=== PATIENT | male | born 1975 | race Hispanic/Latino ===

== ENCOUNTER 2017-02-01 12:52 | Emergency (ER) | payer SELFPAY ==
[2017-02-01] MEDS ORDERED: Budesonide 0.5 MG/2 ML NEB ONE (13:16)
--- NOTE | 2017-02-01 14:11 | RAD ---
RADIOGRAPH CHEST 2 VIEWS: HISTORY: 41-year-old male with cough. FINDINGS: There is no air space density, pulmonary edema, pleural effusion, pneumothorax, or cardiomegaly. Inte rstitial markings are prominent at the lung bases. IMPRESSION: No acute cardiopulmonary findings. abdullahi cabral POS: [facility]
[2017-02-01] MEDS ORDERED: Sodium Chloride For Inhalation 0.9% 3 ML NEB ONE (14:49)
[2017-02-01] MEDS ORDERED: Albuterol Sulfate 2.5 mg/0.5 ml Neb ONE (14:49)
== END 2017-02-01 15:00 | disposition home or self-care (01) ==
LOC: SCSER 12:52
DX: J20.9 Acute bronchitis, unspecified (principal); J45.909 Unspecified asthma, uncomplicated
CPT/HCPCS: 71020; 94640; J7611; J7620; J7626

== ENCOUNTER 2017-03-25 21:59 | Emergency (ER) | payer SELFPAY | END 2017-03-25 22:25 | disposition home or self-care (01) | LOC: SCSER 21:59 | DX: J40 Bronchitis, not specified as acute or chronic (principal) | CPT/HCPCS: 99283 ==

== ENCOUNTER 2017-11-11 08:38 | Emergency (ER) | payer SELFPAY ==
--- NOTE | 2017-11-11 09:27 | RAD ---
PA AND LATERAL VIEWS OF CHEST: Date: 11/11/17 HISTORY: Cough and sore throat. FINDINGS: Comparison made with exam of 02/01/17. The heart size is normal. The lungs are expanded without focal areas of consolidation, pneumothoraces , or pleural effusions. IMPRESSION: No radiographic evidence of acute cardiopulmonary process. POS: [facility]
== END 2017-11-11 09:35 | disposition home or self-care (01) ==
LOC: SCSER 08:38
DX: J02.0 Streptococcal pharyngitis (principal); J45.909 Unspecified asthma, uncomplicated; Z79.899 Other long term (current) drug therapy
CPT/HCPCS: 71046; 87430; 94640; J7620

== ENCOUNTER 2018-02-01 12:56 | Inpatient (IN) | payer SELFPAY ==
[2018-02-01] MEDS ORDERED: methylPREDNISolone Sod Succ/PF 125 MG/2 ML VIAL ONE (13:11)
[2018-02-01] MEDS ORDERED: Magnesium Sulfate 2 GM/NS 0.9% 50 ML BAG ONE (13:11)
[2018-02-01] MEDS ORDERED: Water For Inject, Bacteriostat 30 ML ONE (13:12)
[2018-02-01 13:43] LABS: Band 2 % (5-11); Hemoglobin 14.7 g/dL (14.0-18.0); Lymphocytes 3 % (21-51); MDiff Complete? YES; Mean Corpuscular HGB CONC 32.6 g/dL (32.0-36.0); Mean Platelet Volume 8.1 fL (7.4-10.4); Monocytes 3 % (0-10); Neutrophil 89 % (42-75); PLT Morphology Comment Appears Adequate; Platelet Count 236 thou/uL (130-400); Reactive Lymphocytes 2 % (0-10); Red Blood Cell (RBC) Count 5.06 mill/uL (4.70-6.10); Toxic Granulation SLIGHT; Vacuoles SLIGHT; White Blood Cell (WBC) Count 17.6 thou/uL (4.8-10.8)
[2018-02-01 13:50] LABS: ALT (SGPT) 16 U/L (8-55); AST (SGOT) 19 U/L (5-34); Albumin 4.4 g/dL (3.5-5.0); Alkaline Phosphatase 85 U/L (40-150); Anion Gap 15 mmol/L (10-20); BUN (Urea Nitrogen) 15 mg/dL (8.9-20.6); Bilirubin, Total 0.8 mg/dL (0.2-1.2); Calc. Creatinine Clearance 0 mL/min (70-130); Calcium 9.1 mg/dL (7.8-10.44); Carbon Dioxide 19 mmol/L (22-29); Chloride 112 mmol/L (98-107); Estimated GFR-MDRD 80; Globulin 3.1 g/dL (2.4-3.5); Glucose 120 mg/dL (70-105); Potassium 3.7 mmol/L (3.5-5.1); Protein, Total 7.5 g/dL (6.0-8.3); Sodium 142 mmol/L (136-145)
[2018-02-01] MEDS ORDERED: Sodium Chloride 0.9% 100 ML ONE (14:26)
[2018-02-01] MEDS ORDERED: cefTRIAXone\\ROCEPHIN 1 GM VIAL ONE (14:26)
--- NOTE | 2018-02-01 14:39 | RAD ---
RADIOGRAPH CHEST 1 VIEW: HISTORY: A 42-year-old male with dyspnea and productive cough. FINDINGS: The visualized lung romo are clear. The cardiomediastinal silhouette and hilar shadows are normal. The lateral costophrenic angles are sharp. The osseous structures appear normal. There is no pneu mothorax. IMPRESSION: Negative. abdullahi [] POS: [facility]
[2018-02-01 15:48] VITALS: BMI 24.5
[2018-02-01] MEDS ORDERED: Albuterol Sulfate 2.5 mg/3 ml Neb NEB PRN (15:59)
[2018-02-01] MEDS ORDERED: Magnesium 2 GM/50 ML 2 GM in Premix Bag 1 BAG IVPB SCH (16:15)
[2018-02-01] MEDS: Dextrose 5 %-0.45 % NaCl 1,000 ML IV SCH (17:49)
[2018-02-01] MEDS: Mometasone/Formoterol 120 PUFF INHALER INH SCH (18:23)
[2018-02-01] MEDS: Lorazepam 0.5 MG TAB PO PRN (19:35)
[2018-02-01] MEDS: Guaifenesin DM 100-10/5 ML UDCUP PO PRN (19:58)
[2018-02-01] MEDS: Montelukast Sodium 10 mg Tablet PO SCH (19:59)
--- NOTE | 2018-02-01 21:13 | CON ---
DATE OF CONSULTATION: HISTORY OF PRESENT ILLNESS: Robinson Mckeon is a 42-year-old gentleman with longstanding history of asthma, presented with tightness, coughing, and wheezing; unresponsive to usual home medication; he states he got an inhaler. He was placed on noninvasive ventilation. He apparently has a ProAir and albuterol inhaler at home. Denies any alcohol, tobacco, or substance abuse. He has no primary care physician. PAST MEDICAL HISTORY: Pertinent only for chronic asthma. No diabetes or hypertension. PAST SURGICAL HISTORY: None. HOME MEDICATIONS: ProAir. ALLERGIES: NONE. SOCIAL HISTORY: Does construction work. PHYSICAL EXAMINATION: VITAL SIGNS: On BiPAP, his saturations are 96%, respiratory rate _30, temperature 99, blood pressure 150/92, and pulse 115. CHEST: Diffuse wheezing. CARDIAC: Sinus tach. ABDOMEN: Soft without any masses. LABORATORY DATA: White count 17,000, Lytes are normal. DIAGNOSTIC DATA: X-ray was normal. IMPRESSION: Chronic obstructive pulmonary disease exacerbation; bronchitis, asthma exacerbation. PLAN: Magnesium, steroids, and neb treatment have been initiated. Baseline PFT prior to discharge. Consultation note 70 minutes, 50% in direct patient care. Job ID: [id number] MTDD
[2018-02-01] MEDS ORDERED: Lorazepam 2 MG/ML VIAL SLOW IVP SCH (21:30)
--- NOTE | 2018-02-02 01:05 | HP ---
PRIMARY CARE PROVIDER: [facility]. CHIEF COMPLAINT: Cough and shortness of breath. HISTORY OF PRESENT ILLNESS: This is a 42-year-old male who presented to [facility], complaining of increased shortness of breath over the last 2 days. The patient admitted to subjective fever, cold symptoms with progressive shortness of breath. The patient states he has a history of asthma, using a home albuterol inhaler which was not helping his symptoms. The patient also states he took prednisone which had been previously prescribed to him in the past without relief of symptoms. The patient denied any sick contacts, exposure history, travel, or family members with similar symptoms. In the emergency room, the patient underwent general evaluation including chest imaging showing no acute infiltrate. The patient was noted tachycardic with tachypnea and initially placed on BiPAP noninvasive mechanical ventilation in the emergency room. The patient also received azithromycin, Rocephin, DuoNebs, intravenous normal saline, Solu-Medrol, and magnesium. The patient was transferred to the intermediate care unit for further evaluation. PAST MEDICAL HISTORY: Asthma, moderate. PAST SURGICAL HISTORY: Reviewed and negative. CURRENT MEDICATIONS: Albuterol sulfate 1 puff inhaled q.4-6 hours p.r.n. ALLERGIES: NO KNOWN DRUG ALLERGIES. FAMILY HISTORY: No inheritable diseases per patient report. SOCIAL HISTORY: The patient resides in [place], [place]. Occasional alcohol use. No tobacco or illicit drug use. REVIEW OF SYSTEMS: CONSTITUTIONAL: Negative for weight loss or gain, ability to conduct usual activities. SKIN: Negative for rash, itching. EYES: Negative for double vision, pain. ENT/MOUTH: Negative for nose bleeding, neck stiffness, pain, tenderness. CARDIOVASCULAR: Negative for palpitations, dyspnea on exertion, orthopnea. RESPIRATORY: Negative for shortness of breath, wheezing, cough, hemoptysis, fever or night sweats. GASTROINTESTINAL: Negative for poor appetite, abdominal pain, heartburn, nausea, vomiting, constipation, or diarrhea. GENITOURINARY: Negative for urgency, frequency, dysuria, nocturia. MUSCULOSKELETAL: Negative for pain, swelling. NEUROLOGIC/PSYCHIATRIC: Negative for anxiety, depression. ALLERGY/IMMUNOLOGIC: Negative for skin rash, bleeding tendency. Otherwise negative except as stated per HPI. PHYSICAL EXAMINATION: VITAL SIGNS: On admission; blood pressure 133/70, pulse 114, respiratory rate 24, temperature 98.3 degrees Fahrenheit, O2 saturation 88% on room air. GENERAL APPEARANCE: This is a 42-year-old male, alert and oriented x3, pleasant, responsive, in no acute distress. HEENT: Pupils are equal, round, and reactive to light and accommodation. Extraocular muscles are intact. No scleral icterus. No conjunctival injection. Nares patent. OP is clear. Teeth in fair repair. NECK: Supple. No cervical adenopathy. No thyromegaly. No carotid bruits. No JVD appreciated. Cervical spinal with full active and passive range of motion. No meningeal signs appreciated. CHEST: Diminished breath sounds in the bases bilaterally with inspiratory and expiratory wheezing. CARDIOVASCULAR: S1 and S2 without noted murmur, rub, or gallop. Positive tachycardia. ABDOMEN: Rounded, soft, nontender, and nondistended. Bowel sounds are positive in all 4 quadrants. There is no hepatosplenomegaly. No abdominal bruits. No rebound or guarding appreciated. EXTREMITIES: Warm and dry with fair turgor. No clubbing, cyanosis, or asymmetric edema appreciated. Pulses are palpable distally at the dorsalis pedis, posterior tibial, and popliteal arteries bilaterally. Capillary refill is less than 2 seconds. NEUROLOGIC: Cranial nerves 2 through 12 are grossly intact. No focal or lateralizing signs appreciated. PERTINENT LAB AND X-RAY FINDINGS: Basic metabolic profile within normal limits. Glucose 120. LFTs within normal limits. CBC showed a white blood cell count of 17.6, hemoglobin 14.7, hematocrit 45, platelet count 236, with 89% neutrophils. Influenza A and B antigen on 02/01/2018, negative. Portable chest x-ray dated 02/01/2018, showed no acute infiltrate. EKG dated 02/01/2018, by my interpretation shows sinus tachycardia with heart rates in the low 100s. Normal R-wave progression noted in the precordial leads. Rightward axis. No acute ST-T wave changes appreciated. ASSESSMENT AND PLAN: 1. Acute hypoxic respiratory failure. The patient will be admitted to the intermediate care unit. The patient initially managed with BiPAP noninvasive mechanical ventilation in addition to multiple medications to include magnesium sulfate, DuoNeb, Solu-Medrol, Rocephin, and Zithromax. We will continue oxygen supplementation as the patient is currently on 2 L/min by nasal cannula. 2. Acute asthma exacerbation. See treatment as outlined in #1. Continue DuoNeb q.4 hours. Solu-Medrol 40 mg IV q.6 hours with additional Dulera 2 puffs inhaled b.i.d. Singulair 10 mg p.o. at bedtime. Titrate oxygen supplementation as clinically indicated. 3. Leukocytosis with neutrophilia, suspect secondarily to stress reaction in conjunction with recent prednisone use. Repeat CBC in the a.m. 4. Prophylaxis. Sequential compression devices while in bed. Pepcid 20 mg p.o. b.i.d. CODE STATUS: Full. Surrogate medical decision maker is the patient's spouse. Job ID: [id number]
[2018-02-02] MEDS: Dextrose 5 %-0.45 % NaCl 1,000 ML IV SCH ×2 (01:58→20:11)
[2018-02-02] MEDS: Lorazepam 0.5 MG TAB PO PRN ×3 (01:58→20:05)
[2018-02-02] MEDS: Mometasone/Formoterol 120 PUFF INHALER INH SCH ×2 (07:14→19:47)
--- NOTE | 2018-02-02 08:35 | PDOC.PN ---
- Subjective Encounter Start Date: 02/02/18 Encounter Start Time: 08:35 Subjective: feels much better. denies any SOB.mild wheezing - Objective MAR Reviewed: Yes Vital Signs & Weight: Vital Signs (12 hours) Temp Pulse Resp BP Pulse Ox 02/02/18 07:42 98.8 F 110 H 23 H 115/73 94 L 02/02/18 07:14 102 H 24 H 93 L 02/02/18 07:00 93 L 02/02/18 06:59 102 H 24 H 93 L 02/02/18 04:00 97.0 F L 106 H 24 H 97/64 93 L 02/02/18 03:46 104 H 16 94 L 02/02/18 00:30 118 H 20 92 L 02/02/18 00:00 98.8 F 110 H 25 H 104/58 L 92 L 02/01/18 22:00 111 H 24 H 93 L Weight Weight 151 lb 11.2 oz I&O: 02/01/18 02/02/18 02/03/18 06:59 06:59 06:59 Intake Total 1700 Output Total 1700 Balance 0 Result Diagrams: 02/01/18 13:21 02/01/18 13:21 Additional Labs: Microbiology 02/01/18 13:28 Nasal swab Influenza Types A,B Direct EIA - Final 02/01/18 14:29 Venous blood - Right Arm Blood Culture - Preliminary Specimen has been received and culture in progress. No Growth to date. 02/01/18 14:25 Venous blood - Left Hand Blood Culture - Preliminary Specimen has been received and culture in progress. No Growth to date. Phys Exam - Physical Examination Constitutional: NAD HEENT: PERRLA, moist MMs, sclera anicteric, oral pharynx no lesions Neck: no nodes, no JVD, supple, full ROM Respiratory: no wheezing, no rales, no rhonchi, clear to auscultation bilateral Cardiovascular: RRR, no significant murmur Gastrointestinal: soft, non-tender, no distention, positive bowel sounds Musculoskeletal: no edema, pulses present Neurological: non-focal, normal sensation, moves all 4 limbs Lymphatic: no nodes Psychiatric: normal affect, A&O x 3 Skin: no rash Dx/Plan (1) Acute respiratory failure with hypoxia Code(s): J96.01 - ACUTE RESPIRATORY FAILURE WITH HYPOXIA Status: Acute (2) Asthma exacerbation Code(s): J45.901 - UNSPECIFIED ASTHMA WITH (ACUTE) EXACERBATION Status: Acute (3) Leucocytosis Code(s): D72.829 - ELEVATED WHITE BLOOD CELL COUNT, UNSPECIFIED Status: Acute - Plan respiratory therapy, incentive spirometry, out of bed/ambulate, DVT proph w/SCDs clinically better/cont nebs,O2,steroids -: will need better asthma management at home -: reports daily symptoms & multiple day time use of albuterol -: add singulair -: OK to tarnsfer to medical HD stable * . Review of Systems - Review of Systems Constitutional: malaise. negative: fever, chills, sweats, weakness, other ENT: negative: Ear Pain, Ear Discharge, Nose Pain, Nose Discharge, Nose Congestion, Mouth Pain, Mouth Swelling, Throat Pain, Throat Swelling, Other Respiratory: SOB with Excertion. negative: Cough, Dry, Shortness of Breath, Hemoptysis, Pleuritic Pain, Sputum, Wheezing Cardiovascular: negative: chest pain, palpitations, orthopnea, paroxysmal nocturnal dyspnea, edema, light headedness, other Gastrointestinal: negative: Nausea, Vomiting, Abdominal Pain, Diarrhea, Constipation, Melena, Hematochezia, Other Genitourinary: negative: Dysuria, Frequency, Incontinence, Hematuria, Retention , Other Musculoskeletal: negative: Neck Pain, Shoulder Pain, Arm Pain, Back Pain, Hand Pain, Leg Pain, Foot Pain, Other Neurological: negative: Weakness, Numbness, Incoordination, Change in Speech, Confusion, Seizures, Other - Medications/Allergies Allergies/Adverse Reactions: Allergies Allergy/AdvReac Type Severity Reaction Status Date / Time No Known Allergies Allergy Verified 02/01/18 15:43 Medications: Current Medications Albuterol/Ipratropium (Duoneb) 3 ml NEB [id number] PRN PRN Reason: SOB &/or Wheezing Albuterol/Ipratropium (Duoneb) 3 ml NEB [id number] [facility] Last Admin: 02/02/18 06:59 Dose: 3 ml Guaifenesin/Dextromethorphan (Robitussin Dm) 15 ml PO Q4H PRN PRN Reason: Cough Last Admin: 02/01/18 19:58 Dose: 15 ml Dextrose/Sodium Chloride (D5 1/2 Ns) 1,000 mls @ 100 mls/hr IV .Q10H COUNT INCLUDES THE [facility] Last Admin: 02/02/18 01:58 Dose: 1,000 mls Ceftriaxone Sodium 1 gm/ (Sodium Chloride) 100 mls @ 200 mls/hr IVPB 1500 [place] Influenza Virus Vaccine Quadrival (Fluzone Quad [id number] Syringe) 0.5 ml IM .ONCE ONE Stop: 02/02/18 09:01 Lorazepam (Ativan) 0.5 mg PO Q6H PRN PRN Reason: Anxiety Last Admin: 02/02/18 03:50 Dose: 0.5 mg Methylprednisolone Sodium Succinate (Solu-Medrol) 40 mg IVP Q6HR COUNT INCLUDES THE [facility] Last Admin: 02/02/18 05:36 Dose: 40 mg Mometasone Furoate/Formoterol Fumar (Dulera 200 Mcg/5 Mcg Inhaler) 2 puff INH BID-RT COUNT INCLUDES THE [facility] Last Admin: 02/02/18 07:14 Dose: 2 puff Montelukast Sodium (Singulair) 10 mg PO QPM COUNT INCLUDES THE [facility] Last Admin: 02/01/18 19:59 Dose: 10 mg Pneumococcal Polyvalent Vaccine (Pneumovax 23) 0.5 ml IM .ONCE ONE Stop: 02/02/18 09:01 Sodium Chloride (Flush - Normal Saline) 10 ml IVF PRN PRN PRN Reason: Saline Flush
--- NOTE | 2018-02-02 11:44 | PRG ---
DATE OF SERVICE: 02/02/2018 SUBJECTIVE: This morning, he is much improved. His wheezing is better. OBJECTIVE: VITAL SIGNS: Temperature is 98, pulse 110, respiratory rate 23, blood pressure 115/73. CHEST: Decreased breath sounds. No wheezing. CARDIAC: Normal S1 and S2. No gallops. ABDOMEN: Soft without mass. LABORATORY DATA: Lytes are better. White count 17,000. IMPRESSION: 1. Asthma exacerbation, respiratory failure, much improved. 2. Leukocytosis. Continue steroids, neb treatments. He will be transferred out of the MICU. Job ID: [id number]
[2018-02-02] MEDS: Guaifenesin DM 100-10/5 ML UDCUP PO PRN ×2 (13:09→20:19)
[2018-02-02] MEDS: cefTRIAXone\\ROCEPHIN 1 GM in Sodium Chloride 0.9% 100 ML IVPB SCH (16:22)
[2018-02-02] MEDS: Montelukast Sodium 10 mg Tablet PO SCH (20:10)
[2018-02-03] MEDS: Guaifenesin DM 100-10/5 ML UDCUP PO PRN ×4 (02:33→20:09)
[2018-02-03] MEDS: Lorazepam 0.5 MG TAB PO PRN (04:31)
[2018-02-03] MEDS: Dextrose 5 %-0.45 % NaCl 1,000 ML IV SCH (04:31)
[2018-02-03 04:53] LABS: Band 9 % (5-11); Hemoglobin 13.9 g/dL (14.0-18.0); Lymphocytes 5 % (21-51); MDiff Complete? YES; Mean Corpuscular HGB CONC 34.1 g/dL (32.0-36.0); Mean Corpuscular Hemoglobin 30.7 pg (27.0-31.0); Mean Corpuscular Volume 89.9 fL (78.0-98.0); Mean Platelet Volume 7.3 fL (7.4-10.4); Monocytes 3 % (0-10); Neutrophil 83 % (42-75); PLT Morphology Comment Appears Adequate; Platelet Count 222 thou/uL (130-400); RBC Distribution Width 11.7 % (11.5-14.5); Red Blood Cell (RBC) Count 4.53 mill/uL (4.70-6.10)
[2018-02-03] MEDS: Mometasone/Formoterol 120 PUFF INHALER INH SCH ×2 (07:06→19:59)
--- NOTE | 2018-02-03 10:49 | PDOC.PN ---
- Subjective Encounter Start Date: 02/03/18 Encounter Start Time: 10:48 Subjective: feels better but still SOB w ambulation -: reports he can't afford most meds - Objective MAR Reviewed: Yes Vital Signs & Weight: Vital Signs (12 hours) Temp Pulse Resp BP Pulse Ox 02/03/18 10:16 92 16 02/03/18 08:00 97.9 F 98 18 119/64 92 L 02/03/18 07:08 94 L 02/03/18 07:07 90 16 94 L 02/03/18 04:00 98.0 F 84 16 114/55 L 92 L 02/03/18 02:32 95 16 92 L 02/02/18 23:20 98.4 F 83 16 111/53 L 92 L Weight Weight 151 lb 11.2 oz I&O: 02/02/18 02/03/18 02/04/18 06:59 06:59 06:59 Intake Total 1700 Output Total 1700 Balance 0 Result Diagrams: 02/03/18 04:05 02/01/18 13:21 Phys Exam - Physical Examination Constitutional: NAD HEENT: PERRLA, moist MMs, sclera anicteric, oral pharynx no lesions Neck: no nodes, no JVD, supple, full ROM Respiratory: wheezing present Cardiovascular: RRR, no significant murmur Gastrointestinal: soft, non-tender, no distention, positive bowel sounds Musculoskeletal: no edema, pulses present Neurological: non-focal, normal sensation, moves all 4 limbs Psychiatric: normal affect, A&O x 3 Skin: no rash Dx/Plan (1) Acute respiratory failure with hypoxia Code(s): J96.01 - ACUTE RESPIRATORY FAILURE WITH HYPOXIA Status: Acute (2) Asthma exacerbation Code(s): J45.901 - UNSPECIFIED ASTHMA WITH (ACUTE) EXACERBATION Status: Acute (3) Leucocytosis Code(s): D72.829 - ELEVATED WHITE BLOOD CELL COUNT, UNSPECIFIED Status: Acute - Plan plan discussed w/ family, continue antibiotics, respiratory therapy, incentive spirometry, out of bed/ambulate, DVT proph w/SCDs clinically better but still w wheezing.cont current meds-reduce IV steroids -: Home likley tomorrow. -: educated about need for Long acting inhalers for daily asthma symptoms -: cont singulair,nebs,rocephin empiric * . Review of Systems - Review of Systems Constitutional: malaise. negative: fever, chills, sweats, weakness, other ENT: negative: Ear Pain, Ear Discharge, Nose Pain, Nose Discharge, Nose Congestion, Mouth Pain, Mouth Swelling, Throat Pain, Throat Swelling, Other Respiratory: SOB with Excertion. negative: Cough, Dry, Shortness of Breath, Hemoptysis, Pleuritic Pain, Sputum, Wheezing Cardiovascular: negative: chest pain, palpitations, orthopnea, paroxysmal nocturnal dyspnea, edema, light headedness, other Gastrointestinal: negative: Nausea, Vomiting, Abdominal Pain, Diarrhea, Constipation, Melena, Hematochezia, Other Genitourinary: negative: Dysuria, Frequency, Incontinence, Hematuria, Retention , Other Skin: negative: Rash, Lesions, Bradley, Bruising, Other Neurological: negative: Weakness, Numbness, Incoordination, Change in Speech, Confusion, Seizures, Other - Medications/Allergies Allergies/Adverse Reactions: Allergies Allergy/AdvReac Type Severity Reaction Status Date / Time No Known Allergies Allergy Verified 02/01/18 15:43 Medications: Current Medications Albuterol/Ipratropium (Duoneb) 3 ml NEB [id number] PRN PRN Reason: SOB &/or Wheezing Albuterol/Ipratropium (Duoneb) 3 ml NEB [id number] [facility] Last Admin: 02/03/18 10:16 Dose: 3 ml Guaifenesin/Dextromethorphan (Robitussin Dm) 15 ml PO Q4H PRN PRN Reason: Cough Last Admin: 02/03/18 10:13 Dose: 15 ml Ceftriaxone Sodium 1 gm/ (Sodium Chloride) 100 mls @ 200 mls/hr IVPB 1500 [place] Last Admin: 02/02/18 16:22 Dose: 100 mls Lorazepam (Ativan) 0.5 mg PO Q6H PRN PRN Reason: Anxiety Last Admin: 02/03/18 04:31 Dose: 0.5 mg Methylprednisolone Sodium Succinate (Solu-Medrol) 40 mg IVP Q8HR [facility] Mometasone Furoate/Formoterol Fumar (Dulera 200 Mcg/5 Mcg Inhaler) 2 puff INH BID-RT [facility] Last Admin: 02/03/18 07:06 Dose: 2 puff Montelukast Sodium (Singulair) 10 mg PO QPM [facility] Last Admin: 02/02/18 20:10 Dose: 10 mg Sodium Chloride (Flush - Normal Saline) 10 ml IVF PRN PRN PRN Reason: Saline Flush
--- NOTE | 2018-02-03 13:32 | PRG ---
DATE OF SERVICE: 02/03/2018 SUBJECTIVE: This morning, he is awake, alert, and responsive. He is better. OBJECTIVE: VITAL SIGNS: Sats are still low 92% on 2 L, temperature 98, pulse 99, and blood pressure 121/69. CHEST: Minimal wheezing. CARDIAC: Normal S1 and S2. No gallops. ABDOMEN: No masses. LABORATORY DATA: White count 20,000, hemoglobin and hematocrit are unremarkable. IMPRESSION: 1. Chronic obstructive pulmonary disease exacerbation, asthma, bronchitis. 2. Leukocytosis .// plan to switch po medication.// If he is stable, probably discharged home in the next 24 to 48 hours. Job ID: [id number] MTDD
[2018-02-03] MEDS: cefTRIAXone\\ROCEPHIN 1 GM in Sodium Chloride 0.9% 100 ML IVPB SCH (15:54)
[2018-02-03] MEDS: Doxycycline 100 MG CAP PO SCH (20:10)
[2018-02-03] MEDS: Montelukast Sodium 10 mg Tablet PO SCH (20:10)
[2018-02-04] MEDS: Guaifenesin DM 100-10/5 ML UDCUP PO PRN (05:21)
[2018-02-04] MEDS: Mometasone/Formoterol 120 PUFF INHALER INH SCH (07:04)
[2018-02-04] MEDS ORDERED: predniSONE 20 MG TAB PO SCH (08:00)
[2018-02-04] MEDS: Doxycycline 100 MG CAP PO SCH (08:02)
[2018-02-04 09:02] VITALS: BP 119/80; TEMP 97.6
--- NOTE | 2018-02-04 12:21 | DIS ---
DATE OF ADMISSION: 02/01/2018 DATE OF DISCHARGE: 02/04/2018 CONDITION: At the time of discharge, stable and improved. DISCHARGE DISPOSITION: Home. PRIMARY CARE PHYSICIAN: [id number] DISCHARGE DIAGNOSES: 1. Acute hypoxic respiratory failure. 2. Acute asthma exacerbation. 3. History of moderate persistent asthma. DISCHARGE MEDICATIONS: 1. DuoNeb q.4 hours p.r.n. 2. Medrol Dosepak. 3. Doxycycline 100 mg p.o. b.i.d. for 5 more days. 4. Advair Diskus two puffs b.i.d. 5. Singulair 10 mg daily. IN-HOUSE CONSULTATION: Pulmonary medicine, Dr. Blank. PROCEDURES DONE IN HOSPITAL: Chest x-ray upon presentation, which does not show any evidence of infiltrate or edema or effusion. HISTORY OF PRESENTING ILLNESS: Mr. Mckeon is a pleasant 42-year-old male with known history of asthma with almost daily symptoms, who presented to the emergency room with complaints of cough and shortness of breath. He was found to be in acute asthma exacerbation and received nebulizers, inhalers, and was started on BiPAP for severe respiratory distress and was admitted to [facility]. He was also given IV steroids and empiric antibiotics. Please see admission history and physical for further details. HOSPITAL COURSE: The patient had a quick turnaround. He was transitioned off the BiPAP and was transferred out of the [facility]. He was continued on the medicines and treatment mentioned above, which were eventually changed to oral. Pulmonary Medicine saw the patient and he gradually improved. As of this morning, the patient is back to baseline. He is able to walk in the halls with the family without any need for oxygen and he is not hypoxic anymore. He was seen and examined prior to discharge. PHYSICAL EXAMINATION: VITAL SIGNS: This morning, temperature 97.6, pulse of 85, respirations 14, saturating 95% on room air, and blood pressure 119/80. GENERAL: No acute distress. CHEST: Clear to auscultation without any wheezing, rales, or rhonchi. HEART: Rate and rhythm are regular. DISCHARGE PLAN: Discussed with the patient and his and the discharge medications were discussed as well. At this time, all prescriptions were provided and they were given information about the [employer] coupon plan. They do report that they will be able to afford most of these medications. I have also encouraged them to follow up with primary care physician and they were given referral to Pulmonary Medicine for outpatient setting as well. Job ID: [id number]
== END 2018-02-04 12:31 | disposition home or self-care (01) | DRG 189 ==
LOC: SCSER 12:56 → IMCU/EMU 14:05 → ONC 02-02 17:44
PROVIDERS: ADMIT Internal Medicine; ATTEND Internal Medicine
PROC: 5A09357 Assistance with Respiratory Ventilation, Less than 24 Consecutive Hours, Continuous Positive Airway Pressure (ICD-10-PCS; principal; 2018-02-01)
DX: J96.01 Acute respiratory failure with hypoxia (principal); J44.1 Chronic obstructive pulmonary disease with (acute) exacerbation; J45.41 Moderate persistent asthma with (acute) exacerbation; D72.829 Elevated white blood cell count, unspecified; Z79.899 Other long term (current) drug therapy
CPT/HCPCS: 36415; 71045; 80053; 85025; 87040; 87804; 90471; 90686; 90732; 93005; 94640; 94660; 94664; 94760; 96365; 96367; 96375; G0008; G0009; J0696; J2060; J2920; J2930; J3475; J7050; J7506; J7620